=== PATIENT | female | born 1960 | race Caucasian/White ===

== ENCOUNTER 2023-10-09 12:01 | Day surgery (SDC) | payer OTHER ==
[~2023-10-09] VITALS: Ht 160 cm; Wt 88.5 kg
[~2023-10-09 12:01] MED LIST: CALCIUM 1,0001 EAC1 PO; DAILY VALUE1 EACH PO; IBLOOD GLUCOSE TEST STRIP 1 EA TEST VI PRN; LACTATED RINGER'S 1,000 ML IV SCH; LIDOCAINE HCL 1% 5 ML SDV INJ ONE; MIDAZOLAM HCL 5 MG/5 ML VIAL IV PRN; fentaNYL citrate 100 MCG/2 ML VIAL IV PRN
[2023-10-09 12:14] VITALS: BP 148/79
[2023-10-09] MEDS ORDERED: MIDAZOLAM HCL 5 MG/5 ML VIAL ONE (12:28)
[2023-10-09] MEDS ORDERED: fentaNYL citrate 100 MCG/2 ML VIAL ONE (12:29)
--- NOTE | 2023-10-09 13:34 | NUR ---
10/09/23 1334 Sheets,Stephania 1326 PT ARRIVED TO PACU ON 3L VIA NC, PT WAKES EASILY AND DENIES CONCERNS. PT ENCOURAGED TO PASS GAS NEEDED AND IS ABLE TO DO SO. C02 38. PT ENCOURAGED TO REST, PT RESTING WITH EYES CLOSED. 1329 O2 TURNED OFF.
[2023-10-09 14:04] VITALS: BP 116/75
--- NOTE | 2023-10-11 14:10 | OR ---
[facility] [address] [place], [place] [address] Signed DATE OF OPERATION: 10/09/2023 SURGEON: Meenakshi Sullivan MD PREOPERATIVE DIAGNOSIS: History of colon polyps greater than five years ago ([place], [place]). POSTOPERATIVE DIAGNOSIS: Small polyp at rectosigmoid. PROCEDURE: Total colonoscopy to the cecum with cold morcellation polypectomy x1. ANESTHESIA: Intravenous sedation; fentanyl 100 mcg and Versed 5 mg. INDICATION: This 62-year-old white woman is a patient of DONAL Kline. She underwent colonoscopy in [place] greater than five years ago and was said to have had a polyp. She currently has no symptoms of bleeding, diarrhea, or constipation. She is admitted for surveillance colonoscopy. Notably, she has no family history of colon cancer. FINDINGS: The prep was excellent. Complete colonoscopy was undertaken of the cecum with full intubation of the cecum. There was a small adenomatous appearing polyp at approximately 12 cm at the rectosigmoid which was excised with cold morcellation technique. PROCEDURE IN DETAIL: The patient was brought to the endoscopy suite and placed in the lateral decubitus position, given intravenous sedation to the point of slurred speech and nystagmus. Digital rectal examination was normal. Full cardiopulmonary monitoring was maintained. An Olympus video colonoscope was passed in the rectum and noted at the rectosigmoid was a small polyp. This was affirmed by narrow band imaging. The polyp was excised with cold morcellation technique and passed for pathology. Scope was then advanced beyond this ultimately to the cecum. Full intubation of the cecum was accomplished. The ileocecal valve and appendiceal orifice were normal. The scope was withdrawn from that point and examination throughout showed no sign of abnormality. Upon reaching the rectosigmoid, the previous biopsy site was identified once again and found to be hemostatic without other issues. Retroflexed view of the rectum was normal. The scope Electronically Signed By: MEENAKSHI SULLIVAN MD 10/11/23 1410 PATIENT NAME: JAVIER MUELLER OPERATIVE REPORT DATE OF : 64 REPORT #: [id number] PHYSICIAN: MEENAKSHI SULLIVAN MD PCP: GEOFF GRUBBS REPORT IS CONFIDENTIAL AND NOT TO BE RELEASED WITHOUT AUTHORIZATION [facility] [address] [place] [id number] Signed was removed and the patient was taken to the recovery room in good condition. CONCLUDING DIAGNOSIS: Small polyp at rectosigmoid. PLAN: Recommend repeat colonoscopy in 5 years, sooner if symptoms should occur. She will return to the ongoing care of Geoff Grubbs. MD ANDREA Brian/MODL /[id number] cc: DONAL Kline Copies: ~ Electronically Signed By: MEENAKSHI SULLIVAN MD 10/11/23 1410 PATIENT NAME: JAVIER MUELLER SATISH OPERATIVE REPORT DATE OF : 64 REPORT #: [id number] PHYSICIAN: MEENAKSHI SULLIVAN MD PCP: GEOFF GRUBBS REPORT IS CONFIDENTIAL AND NOT TO BE RELEASED WITHOUT AUTHORIZATION
--- NOTE | 2023-10-15 14:25 | PATH ---
[facility] [address] [place], [place] [address] Signed SPECIMEN(S): A RECTOSIGMOID POLYP SPECIMEN SOURCE: A. RECTOSIGMOID POLYP CLINICAL HISTORY: Personal history of colon polyp FINAL PATHOLOGIC DIAGNOSIS: Colon, rectosigmoid, polyp, biopsy: - Hyperplastic polyp. COMMENT: There is no evidence of dysplasia or malignancy. TWK MICROSCOPIC EXAMINATION: Histologic sections of all submitted blocks are examined by light microscopy. These findings, together with the gross examination, support the pathologic diagnosis. GROSS DESCRIPTION: The specimen, labeled and designated "Demetris, designated per requisition, rectosigmoid polyp," is received in formalin and consists of one fragment of soft puga tissue that is up to 0.3 cm in greatest dimension. Entirely submitted in (A1). TW (under the direct supervision of a pathologist) The Gross Description was prepared using a voice recognition system. The report was reviewed for accuracy; however, sound-alike word errors, addition and/or deletions may occur. If there is any question about this report, please contact Client Services. ADDITIONAL NOTES: Immunohistochemical and/or in situ hybridization studies if performed in this case included appropriate positive controls that reacted as expected. This test was developed and its performance characteristics determined by [facility] [facility]. It has not been cleared or approved by the U.S. Food and Drug Administration. The FDA has determined that such clearance or approval is not necessary. This test is used for clinical purposes. It should not be regarded as investigational or for research. [employer] is certified under the PATIENT NAME: JAVIER MUELLER PATHOLOGY DATE OF : 64 REPORT #: [id number] PHYSICIAN: YULIA PATHOLOGY PCP: GEOFF GRUBBS REPORT IS CONFIDENTIAL AND NOT TO BE RELEASED WITHOUT AUTHORIZATION [address] [place], [place] [address] Signed Clinical Laboratory Improvement Amendments of 1988 (CLIA) as qualified to perform high complexity clinical laboratory testing. PERFORMING LABORATORY: Technical component was performed by [facility], [address] [place] [id number] (CLIA# [id number]). Professional interpretation was performed by [facility], [address] [address] (CLIA#:[id number]). Diagnostician: Nilesh Vallecillo MD Pathologist Electronically Signed 10/15/2023 Copies: ~ PATIENT NAME: JAVIER MUELLER PATHOLOGY DATE OF : 64 REPORT #: [id number] PHYSICIAN: YULIA MEHTA PCP: GEOFF GURBBS REPORT IS CONFIDENTIAL AND NOT TO BE RELEASED WITHOUT AUTHORIZATION
== END 2023-10-09 14:15 | disposition home or self-care (01) ==
LOC: OPS 12:01 → DS 13:00 → OPS 14:15
PROVIDERS: ATTEND Surgery
PROC: 0DBN8ZZ Excision of Sigmoid Colon, Via Natural or Artificial Opening Endoscopic (ICD-10-PCS; principal; 2023-10-09 13:00)
DX: Z12.11 Encounter for screening for malignant neoplasm of colon (principal); K63.5 Polyp of colon
CPT/HCPCS: 99153; G0500; J2250; J3010; J7121